=== PATIENT | female | born 1995 | race Caucasian/White ===

== ENCOUNTER → 2024-01-21 12:52 | Outpatient (CLI) | payer OTHER, SELFPAY | PROVIDERS: PCP Physician Assistant; Visit Provider Family Medicine | DX: N39.0 Urinary tract infection, site not specified (principal) | CPT/HCPCS: 87086 ==

== ENCOUNTER → 2024-04-20 15:15 | Outpatient (CLI) | payer BC, SELFPAY ==
[2024-04-21 22:56] LABS: COVID-19 CEPHEID 4-PLEX PCR Negative; Influenza A - CEPHEID Flu A NEGATIVE; Influenza B - CEPHEID Flu B NEGATIVE; Respiratory Syncytial Virus Negative
== END ==
PROVIDERS: PCP Physician Assistant; Visit Provider Physician Assistant Medical
DX: J45.909 Unspecified asthma, uncomplicated (principal); R09.81 Nasal congestion
CPT/HCPCS: 0241U

== ENCOUNTER → 2024-11-15 15:18 | Outpatient (CLI) | payer OTHER, SELFPAY | PROVIDERS: PCP Physician Assistant; Visit Provider Nurse Practitioner Adult Health | DX: Z11.3 Encounter for screening for infections with a predominantly sexual mode of transmission (principal) | CPT/HCPCS: 87491; 87591; 87661 ==